=== PATIENT | female | born 1965 | race Caucasian/White ===

== ENCOUNTER 2017-05-02 21:47 | Observation (INO) | payer MEDICAID, OTHER ==
[~2017-05-02] VITALS: Ht 172.7 cm; Wt 74.6 kg
[~2017-05-02 21:47] MED LIST: CEPH500T PO; CHLO.12%30 SSP; CLIN1CAP5 PO; HYDR-3533 PO; HYDR-3580 PO
[2017-05-02 21:51] VITALS: BP 163/78; PULSE 108; RESP 16; TEMP 98.4; O2SAT 99
[2017-05-02 22:58] LABS: AUTOMATED NEUTROPHIL # 5.1 TH/MM3 (1.8-7.7); BASOPHIL # 0.1 TH/MM3 (0-0.2); BASOPHIL % 0.9 % (0.0-2.0); EOSINOPHIL # 0.1 TH/MM3 (0-0.4); EOSINOPHIL % 0.9 % (0.0-4.0); HEMATOCRIT 41.7 % (35.0-46.0); HEMOGLOBIN 13.9 GM/DL (11.6-15.3); LYMPH % 25.3 % (9.0-44.0); MEAN CORPUSCULAR HEMOGLOBIN 29.3 PG (27.0-34.0); MEAN CORPUSCULAR HGB CONC 33.3 % (32.0-36.0); MEAN PLATELET VOLUME 8.6 FL (7.0-11.0); MONO % 6.2 % (0.0-8.0); MONOCYTE # 0.5 TH/MM3 (0-0.9); NEUT % 66.7 % (16.0-70.0); PLATELET COUNT 220 TH/MM3 (150-450); RED BLOOD COUNT 4.74 MIL/MM3 (4.00-5.30); RED CELL DISTRIBUTION WIDTH 12.6 % (11.6-17.2); WHITE BLOOD COUNT 7.8 TH/MM3 (4.0-11.0)
[2017-05-02 23:08] LABS: CHLORIDE 106 MEQ/L (98-107); SODIUM (NA) 140 MEQ/L (136-145)
[2017-05-02 23:11] LABS: CALCIUM 8.9 MG/DL (8.5-10.1)
[2017-05-02 23:12] LABS: ALBUMIN 4.3 GM/DL (3.4-5.0); BICARBONATE 25.7 MEQ/L (21.0-32.0); BLOOD UREA NITROGEN 20 MG/DL (7-18); GLUCOSE,RANDOM 139 MG/DL (74-106)
[2017-05-02 23:15] LABS: ALT (GPT) 22 U/L (10-53); AST (GOT) 14 U/L (15-37); CREATININE 0.81 MG/DL (0.50-1.00); GLOMERULAR FILTRATION RATE 74 ML/MIN (>89)
[2017-05-02] MEDS ORDERED: PANTOPRAZOLE SODIUM 40 MG VIAL IV PUSH ONE (23:15)
[2017-05-02 23:16] LABS: TOTAL BILIRUBIN ADULT 0.3 MG/DL (0.2-1.0); TOTAL PROTEIN 7.9 GM/DL (6.4-8.2)
--- NOTE | 2017-05-02 23:17 | PD ---
HPI Chief Complaint: GI Complaint Time Seen by Provider: 23:04 Travel History International Travel<30 days: No Contact w/Intl Traveler<30days: No Traveled to known affect area: No History of Present Illness HPI 51-year-old female patient presents to the ER today, started having dark red blood and passing blood clots this evening after eating at her son's place. She denies any abdominal pains, vomiting, or other symptoms. She denies any previous history of GI bleeding. Modifying Factors: None Associated Signs & Symptoms: Rectal bleeding Risk Factors: None PFSH Past Medical History Anxiety: Yes Diminished Hearing: No Genitourinary: Yes Reproductive: Yes (HX OF fibroids) Tetanus Vaccination: Unknown ?: Not Menopausal: Yes Tubal Ligation: Yes Past Surgical History Tonsillectomy: Yes Other Surgery: Yes (CYST REMOVED IN THROAT) Social History Alcohol Use: No Tobacco Use: No Substance Use: No Allergies-Medications (Allergen,Severity, Reaction): Coded Allergies: amoxicillin (Unverified Adverse Reaction, Severe, "diarrhea,stomach problems,won't take", 10/16/16) Reported Meds & Prescriptions Reported Meds & Active Scripts Active Peridex Oral Rinse (Chlorhexidine Gluconate) 0.12 % Thea 15 Ml SSP Q8HR 10 Days Clindamycin Hcl (Clindamycin HCl) 150 Mg Cap 300 Mg PO Q6H 10 Days Lortab 5 mg/325 mg (Hydrocodone/Acetaminophen 5 mg/325 mg) 1 Tab 1 Tab PO Q6H PRN Reported Cephalexin 500 Mg Tab 500 Mg PO Q6H Hydrocodone/Acetaminophen 7.5 mg/325 mg 1 Tab 1 Tab PO Q6H Review of Systems Except as stated in HPI: all other systems reviewed are Neg Physical Exam Narrative GENERAL: Well-developed middle-age female patient currently in mild distress. Awake and oriented 3. SKIN: Focused skin assessment warm/dry. HEAD: Atraumatic. Normocephalic. EYES: Pupils equal and round. No scleral icterus. No injection or drainage. ENT: No nasal bleeding or discharge. Mucous membranes pink and moist. NECK: Trachea midline. No JVD. CARDIOVASCULAR: Regular rate and rhythm. No murmur appreciated. RESPIRATORY: No accessory muscle use. Clear to auscultation. Breath sounds equal bilaterally. GASTROINTESTINAL: Abdomen soft, non-tender, nondistended. Hepatic and splenic margins not palpable. RECTAL EXAM: No masses or tenderness, stool is grossly maroon colored, Hemoccult positive. Notable for external hemorrhoids. MUSCULOSKELETAL: No obvious deformities. No clubbing. No cyanosis. No edema. NEUROLOGICAL: Awake and alert. No obvious cranial nerve deficits. Motor grossly within normal limits. Normal speech. PSYCHIATRIC: Appropriate mood and affect; insight and judgment normal. Data Data Last Documented VS Vital Signs Date Time Temp Pulse Resp B/P (MAP) Pulse Ox O2 Delivery O2 Flow Rate FiO2 05/02/17 21:51 98.4 108 16 163/78 (106) 99 Orders Orders Complete Blood Count With Diff (05/02/17 22:49) Comprehensive Metabolic Panel (05/02/17 22:49) Pantoprazole Inj (Protonix Inj) (05/02/17 23:15) Prothrombin Time / Inr (Pt) (05/02/17 23:11) Act Partial Throm Time (Ptt) (05/02/17 23:11) Type And Screen (05/02/17 23:11) Admit Order (Ed Use Only) (05/02/17 23:27) Place In Observation (05/02/17 ) Vital Signs (Adult) Q4H (05/02/17 23:27) Activity Oob Ad Dee Dee (05/02/17 23:27) Intake + Output TANISHA.QSHIFT (05/02/17 23:27) Diet Npo (05/03/17 Breakfast) Sodium Chloride 0.9% Flush (Ns Flush) (05/02/17 23:30) Sodium Chloride 0.9% Flush (Ns Flush) (05/03/17 09:00) Acetaminophen (Tylenol) (05/02/17 23:30) Ondansetron Inj (Zofran Inj) (05/02/17 23:30) Basic Metabolic Panel (Bmp) (05/03/17 06:00) Complete Blood Count With Diff (05/03/17 06:00) Case Management Consult (05/02/17 23:27) Scd Bilateral/Knee High TANISHA.BID (05/02/17 23:27) Naloxone Inj (Narcan Inj) (05/02/17 23:30) Consult Gastroenterology (05/02/17 ) Pantoprazole Inj (Protonix Inj) (05/03/17 08:00) Labs Laboratory Tests Test 05/02/17 22:50 White Blood Count 7.8 TH/MM3 Red Blood Count 4.74 MIL/MM3 Hemoglobin 13.9 GM/DL Hematocrit 41.7 % Mean Corpuscular Volume 88.0 FL Mean Corpuscular Hemoglobin 29.3 PG Mean Corpuscular Hemoglobin Concent 33.3 % Red Cell Distribution Width 12.6 % Platelet Count 220 TH/MM3 Mean Platelet Volume 8.6 FL Neutrophils (%) (Auto) 66.7 % Lymphocytes (%) (Auto) 25.3 % Monocytes (%) (Auto) 6.2 % Eosinophils (%) (Auto) 0.9 % Basophils (%) (Auto) 0.9 % Neutrophils # (Auto) 5.1 TH/MM3 Lymphocytes # (Auto) 2.0 TH/MM3 Monocytes # (Auto) 0.5 TH/MM3 Eosinophils # (Auto) 0.1 TH/MM3 Basophils # (Auto) 0.1 TH/MM3 CBC Comment DIFF FINAL Differential Comment Blood Urea Nitrogen 20 MG/DL Creatinine 0.81 MG/DL Random Glucose 139 MG/DL Total Protein 7.9 GM/DL Albumin 4.3 GM/DL Calcium Level 8.9 MG/DL Alkaline Phosphatase 94 U/L Aspartate Amino Transf (AST/SGOT) 14 U/L Alanine Aminotransferase (ALT/SGPT) 22 U/L Total Bilirubin 0.3 MG/DL Sodium Level 140 MEQ/L Potassium Level 3.6 MEQ/L Chloride Level 106 MEQ/L Carbon Dioxide Level 25.7 MEQ/L Anion Gap 8 MEQ/L Estimat Glomerular Filtration Rate 74 ML/MIN MDM Medical Decision Making Medical Screen Exam Complete: Yes Emergency Medical Condition: Yes Medical Record Reviewed: Yes Interpretation(s) Laboratory Tests Test 05/02/17 22:50 Blood Urea Nitrogen 20 MG/DL (7-18) Random Glucose 139 MG/DL (74-106) Aspartate Amino Transf (AST/SGOT) 14 U/L (15-37) Estimat Glomerular Filtration Rate 74 ML/MIN (>89) Differential Diagnosis Rectal bleeding: Hemorrhoidal bleeding versus GI bleeding Narrative Course On exam, there is significant amount of maroon blood within the rectal vault. Patient is a bit tachycardic. H&H appears to be stable at this time. Considering the significant bleeding, I am concerned and have given the patient Protonix and my plan would be to admit her as an observation for reevaluation of H&H and GI bleeding. Case was discussed with [place] hospitalist service for admission. Diagnosis Primary Impression: Rectal bleeding Admitting Information Admitting Physician Requests: Admit Guera Farnsworth MD May 02, 2017 23:17
[2017-05-02 23:18] LABS: ALKALINE PHOSPHATASE 94 U/L (45-117)
[2017-05-02] MEDS ORDERED: ACETAMINOPHEN 325 MG TAB PO PRN (23:30)
[2017-05-02] MEDS ORDERED: SODIUM CHLORIDE 0.9% FLUSH 10 ML FLUSH IV FLUSH PRN (23:30)
[2017-05-02] MEDS ORDERED: NALOXONE HCL 0.4 MG/ML AMP IV PUSH PRN (23:30)
[2017-05-02] MEDS ORDERED: ONDANSETRON HCL 4 MG/2 ML VIAL IVP PRN (23:30)
[2017-05-02 23:57] LABS: PROTHROMBIN TIME - PATIENT 10.5 SEC (9.8-11.6)
[2017-05-03] VITALS: BP 158/98; PULSE 80; RESP 16; O2SAT 100
[2017-05-03 00:53] VITALS: BP 139/96; PULSE 101; RESP 20; TEMP 97.1; O2SAT 96
[2017-05-03] MEDS ORDERED: MELATONIN 5 MG TAB PO ONE (01:45)
[2017-05-03 06:37] LABS: AUTOMATED NEUTROPHIL # 3.7 TH/MM3 (1.8-7.7); BASOPHIL # 0.1 TH/MM3 (0-0.2); BASOPHIL % 0.8 % (0.0-2.0); EOSINOPHIL # 0.1 TH/MM3 (0-0.4); EOSINOPHIL % 1.4 % (0.0-4.0); HEMATOCRIT 37.8 % (35.0-46.0); LYMPH % 38.6 % (9.0-44.0); LYMPHOCYTE # 2.7 TH/MM3 (1.0-4.8); MEAN CELL VOLUME 86.9 FL (80.0-100.0); MEAN CORPUSCULAR HEMOGLOBIN 29.9 PG (27.0-34.0); MEAN CORPUSCULAR HGB CONC 34.5 % (32.0-36.0); MEAN PLATELET VOLUME 8.9 FL (7.0-11.0); MONO % 7.3 % (0.0-8.0); MONOCYTE # 0.5 TH/MM3 (0-0.9); NEUT % 51.9 % (16.0-70.0); PLATELET COUNT 199 TH/MM3 (150-450); RED BLOOD COUNT 4.35 MIL/MM3 (4.00-5.30); RED CELL DISTRIBUTION WIDTH 12.6 % (11.6-17.2); WHITE BLOOD COUNT 7.1 TH/MM3 (4.0-11.0)
[2017-05-03 06:54] LABS: CALCIUM 8.5 MG/DL (8.5-10.1)
[2017-05-03 06:55] LABS: BICARBONATE 26.5 MEQ/L (21.0-32.0)
[2017-05-03 06:58] LABS: CREATININE 0.65 MG/DL (0.50-1.00)
--- NOTE | 2017-05-03 07:51 | HHI.HP ---
[facility] No Primary Care Physician Admission Diagnosis GI bleed Diagnoses: Chief Complaint: GI bleed Travel History International Travel<30 Days: No Contact w/Intl Traveler <30 Da: No Traveled to Known Affected Are: No History of Present Illness 51-year-old white female presented to emergency room yesterday after having 3 episodes of dark bloody stools with one episode of of clots that she passed. She denies associated abdominal pain with the symptoms. She denies any associated shortness of breath or dizziness. She states that she has not had previous symptoms of bloody stools or black tarry stools. She states this morning there is no further clots just a small red streak in her bowel movement. She does take ibuprofen twice a day along with Benadryl twice a day for osteoarthritis. She denies any other active symptoms at this time of any nausea or vomiting. She states that she would like to go home and would prefer to be seen as an outpatient for further evaluation for endoscopy. Review of Systems Constitutional: DENIES: Fatigue, Fever, Chills, Change in appetite Endocrine: DENIES: Heat/cold intolerance Eyes: DENIES: Blurred vision, Eye pain, Vision loss Ears, nose, mouth, throat: DENIES: Hearing loss, Nasal discharge, Throat pain, Ear Pain, Sinus Pain Respiratory: DENIES: Cough, Shortness of breath Cardiovascular: DENIES: Chest pain, Palpitations, Dyspnea on Exertion, Lower Extremity Edema Gastrointestinal: COMPLAINS OF: Bloody stools, DENIES: Abdominal pain, Black stools, Constipation, Diarrhea, Nausea, Vomiting Genitourinary: DENIES: Dysuria Musculoskeletal: DENIES: Joint pain, Muscle aches, Stiffness Integumentary: DENIES: Rash Hematologic/lymphatic: DENIES: Bruising, Lymphadenopathy Immunologic/allergic: DENIES: Eczema Neurologic: DENIES: Headache, Localized weakness, Paresthesias Psychiatric: DENIES: Anxiety, Depression, Suicidal Ideation Past Family Social History Past Medical History Anxiety Fibroids Past Surgical History Bilateral tubal ligation Reported Medications Ibuprofen [id number] twice a day Benadryl [id number] twice a day Allergies: Coded Allergies: amoxicillin (Unverified Adverse Reaction, Severe, "diarrhea,stomach problems,won't take", 10/16/16) Family History Father had oral cancer Mother had breast cancer Social History Does not smoke cigarettes or drink alcohol. Physical Exam Vital Signs Vital Signs Date Time Temp Pulse Resp B/P (MAP) Pulse Ox O2 Delivery O2 Flow Rate FiO2 05/03/17 00:53 97.1 101 20 139/96 (110) 96 05/03/17 00:45 05/03/17 00:00 80 16 158/98 (118) 100 Room Air 05/02/17 21:51 98.4 108 16 163/78 (106) 99 Physical Exam GENERAL: This is a well-nourished, well-developed patient, in no apparent distress. SKIN: No rashes, ecchymoses or lesions. Cool and dry. HEAD: Atraumatic. Normocephalic. No temporal or scalp tenderness. EYES: Pupils equal round and reactive. Extraocular motions intact. No scleral icterus. No injection or drainage. ENT: Nose without bleeding, purulent drainage or septal hematoma. Throat without erythema, tonsillar hypertrophy or exudate. Uvula midline. Airway patent. NECK: Trachea midline. No JVD or lymphadenopathy. Supple, nontender, no meningeal signs. CARDIOVASCULAR: Regular rate and rhythm without murmurs, gallops, or rubs. RESPIRATORY: Clear to auscultation. Breath sounds equal bilaterally. No wheezes , rales, or rhonchi. GASTROINTESTINAL: Abdomen soft, non-tender, nondistended. No hepato-splenomegaly , or palpable masses. No guarding. MUSCULOSKELETAL: Extremities without clubbing, cyanosis, or edema. No joint tenderness, effusion, or edema noted. No calf tenderness. Negative Homans sign bilaterally. NEUROLOGICAL: Awake and alert. Cranial nerves II through XII intact. Motor and sensory grossly within normal limits. Five out of 5 muscle strength in all muscle groups. Normal speech. Laboratory Laboratory Tests Test 05/02/17 22:50 05/02/17 23:35 05/03/17 05:05 White Blood Count 7.8 7.1 Red Blood Count 4.74 4.35 Hemoglobin 13.9 13.0 Hematocrit 41.7 37.8 Mean Corpuscular Volume 88.0 86.9 Mean Corpuscular Hemoglobin 29.3 29.9 Mean Corpuscular Hemoglobin Concent 33.3 34.5 Red Cell Distribution Width 12.6 12.6 Platelet Count 220 199 Mean Platelet Volume 8.6 8.9 Neutrophils (%) (Auto) 66.7 51.9 Lymphocytes (%) (Auto) 25.3 38.6 Monocytes (%) (Auto) 6.2 7.3 Eosinophils (%) (Auto) 0.9 1.4 Basophils (%) (Auto) 0.9 0.8 Neutrophils # (Auto) 5.1 3.7 Lymphocytes # (Auto) 2.0 2.7 Monocytes # (Auto) 0.5 0.5 Eosinophils # (Auto) 0.1 0.1 Basophils # (Auto) 0.1 0.1 CBC Comment DIFF FINAL DIFF FINAL Differential Comment Blood Urea Nitrogen 20 17 Creatinine 0.81 0.65 Random Glucose 139 106 Total Protein 7.9 Albumin 4.3 Calcium Level 8.9 8.5 Alkaline Phosphatase 94 Aspartate Amino Transf (AST/SGOT) 14 Alanine Aminotransferase (ALT/SGPT) 22 Total Bilirubin 0.3 Sodium Level 140 140 Potassium Level 3.6 3.6 Chloride Level 106 106 Carbon Dioxide Level 25.7 26.5 Anion Gap 8 8 Estimat Glomerular Filtration Rate 74 95 Prothrombin Time 10.5 Prothromb Time International Ratio 1.0 Activated Partial Thromboplast Time 22.8 Result Diagram: 05/03/17 0505 05/03/17 0505 Caprini VTE Risk Assessment Caprini VTE Risk Assessment: No/Low Risk (score <= 1) Caprini Risk Assessment Model Point Value = 1 Point Value = 2 Point Value = 3 Point Value = 5 Age 41-60 Minor surgery BMI > 25 kg/m2 Swollen legs Varicose veins or History of unexplained or recurrent spontaneous Oral contraceptives or hormone replacement Sepsis (< 1 month) Serious lung disease, including pneumonia (< 1 month) Abnormal pulmonary function Acute myocardial infarction Congestive heart failure (< 1 month) History of inflammatory bowel disease Medical patient at bed rest Age 61-74 Arthroscopic surgery Major open surgery (> 45 min) Laparoscopic surgery (> 45 min) Malignancy Confined to bed (> 72 hours) Immobilizing plaster cast Central venous access Age >= 75 History of VTE Family history of VTE Factor V Leiden Prothrombin [id number] Lupus anticoagulant Anticardiolipin antibodies Elevated serum homocysteine Heparin-induced thrombocytopenia Other congenital or acquired thrombophilia Stroke (< 1 month) Elective arthroplasty Hip, pelvis, or leg fracture Acute spinal cord injury (< 1 month) Prophylaxis Regimen Total Risk Factor Score Risk Level Prophylaxis Regimen 0-1 Low Early ambulation 2 Moderate Order ONE of the following: *Sequential Compression Device (SCD) *Heparin 5000 units SQ BID 3-4 Higher Order ONE of the following medications: *Heparin 5000 units SQ TID *Enoxaparin/Lovenox 40 mg SQ daily (WT < 150 kg, CrCl > 30 mL/min) *Enoxaparin/Lovenox 30 mg SQ daily (WT < 150 kg, CrCl > 10-29 mL/min) *Enoxaparin/Lovenox 30 mg SQ BID (WT < 150 kg, CrCl > 30 mL/min) AND/OR *Sequential Compression Device (SCD) 5 or more Highest Order ONE of the following medications: *Heparin 5000 units SQ TID (Preferred with Epidurals) *Enoxaparin/Lovenox 40 mg SQ daily (WT < 150 kg, CrCl > 30 mL/min) *Enoxaparin/Lovenox 30 mg SQ daily (WT < 150 kg, CrCl > 10-29 mL/min) *Enoxaparin/Lovenox 30 mg SQ BID (WT < 150 kg, CrCl > 30 mL/min) AND *Sequential Compression Device (SCD) Assessment and Plan Assessment and Plan 1. GI bleed-patient's hemoglobin has remained stable overnight with no recurrence of bloody clots; she is on chronic NSAIDs and was counseled to stop taking her ibuprofen. The case was discussed with REGINO Guillory who will see her as an outpatient for further evaluation for endoscopy. Patient was counseled should she have any recurrent large bloody stools to represent to the emergency room for further evaluation. She will be sent home on PPI. Discharge patient to home Condition on discharge: Improved Regular Diet as tolerated Ad Dee Dee activity Rx written: Protonix 40 mg p.o. daily Follow-up with primary care physician Follow-up with REGINO Guillory Stop taking [id number] NSAIDs Octavia Mercado MD May 03, 2017 07:50
[2017-05-03 08:00] VITALS: BP 171/99; PULSE 76; RESP 16; TEMP 98; O2SAT 96
[2017-05-03] MEDS ORDERED: PANTOPRAZOLE SODIUM 40 MG VIAL IV PUSH SCH (08:00)
--- NOTE | 2017-05-03 08:01 | HHI.DCPOC ---
Discharge Care Plan Diagnosis: (1) GI bleed Goals to Promote Your Health * To prevent worsening of your condition and complications * To maintain your health at the optimal level Directions to Meet Your Goals Take your medications as prescribed Follow your dietary instruction Follow activity as directed Keep your appointments as scheduled Take your immunizations and boosters as scheduled If your symptoms worsen call your PCP, if no PCP go to Urgent Care Center or Emergency Room Smoking is Dangerous to Your Health. Avoid second hand smoke Call the 24-hour hour crisis hotline for domestic abuse at Octavia Mercado MD May 03, 2017 08:01
[2017-05-03] MEDS ORDERED: IBUP1TAB5 PO (08:09)
[2017-05-03] MEDS ORDERED: BENA25CA4 PO (08:12)
[2017-05-03] MEDS ORDERED: PROT40TA PO (08:35)
[2017-05-03] MEDS ORDERED: SODIUM CHLORIDE 0.9% FLUSH 10 ML FLUSH IV FLUSH SCH (09:00)
== END 2017-05-03 12:00 | disposition home or self-care (01) ==
LOC: PHED 21:47 → PHEDA 23:29 → PH3A 05-03 00:53
PROVIDERS: ADMIT Family Medicine; ATTEND Family Medicine
DX: K92.2 Gastrointestinal hemorrhage, unspecified (principal); R00.0 Tachycardia, unspecified; F41.9 Anxiety disorder, unspecified; M19.90 Unspecified osteoarthritis, unspecified site
CPT/HCPCS: 80048; 80053; 85025; 85610; 85730; 86850; 86900; 86901; 96374; 96376; 99285; C9113; G0378